=== PATIENT | male | born 1965 | race Caucasian/White ===

== ENCOUNTER → 2017-02-22 | Outpatient (CLI) | payer BC ==
--- NOTE | 2017-02-22 15:24 | RADRPT ---
PROCEDURE: US carotid arteries. CLINICAL INDICATION: Left retinal vein occlusion. TECHNIQUE: Multiple sonographic images of the carotid arteries and vertebral arteries were obtaine d utilizing tolentino scale, duplex, and color-flow imaging. The images were reviewed on a PACS workstati on. COMPARISON: No prior studies are available for comparison. FINDINGS: Evaluation of the right carotid bifurcation region reveals mild atherosclerotic disease. Evaluation of the left carotid bifurcation region reveals mild atherosclerotic disease. There is antegrade flow within the vertebral arteries bilaterally. RIGHT CAROTID MEASUREMENTS: Common Carotid [id number] (cm/sec) Internal Carotid Artery 91 (cm/sec) External Carotid Artery 93 (cm/sec) Vertebral Artery 35 (cm/sec) Internal Carotid/Common Carotid1.0 LEFT CAROTID MEASUREMENTS: Common Carotid [id number] (cm/sec) Internal Carotid Artery 69 (cm/sec) External Carotid Artery 76 (cm/sec) Vertebral Artery 36 (cm/sec) Internal Carotid/Common Carotid0.8 Validated velocity measurements with angiographic measurements. Velocity criteria are extrapolated f rom diameter data as defined by the Society of Radiologists in Ultrasound Consensus Conference. Radi ology 2003; 229;340-346. This study does indirectly reference the measurement of the distal ICA alison meter as the denominator for stenosis measurement. IMPRESSION: 1. Less than 50% stenosis bilaterally in the internal carotid arteries. 2. Normal antegrade flow in the vertebral arteries bilaterally. RPTAT: QQ SRU Consensus Conference Criteria for the Diagnosis of Carotid Artery Stenosis* Degree of Stenosis, % ICA PSV, cm/sec Plaque Estimate, % ICA/CCA PSV Ratio Normal <125 None <2.0 <50 <125 <50 <2.0 50 69 125-230 >50 2.0-4.0 >70 but less than near occlusion >230 >50 <4.0 Near occlusion High, low, or undetectable Visible Variable Total occlusion Undetectable Visible, no detectable lumen Not applicable *Cartoid artery stenosis: tolentino-scale and Doppler US diagnosis. Society of Radiologists in Ultrasound Consensus Conference. Radiology 2003; 229: 340-346 .Rubin Strickland MD, Date Time Electronically viewed and signed by .Rubin Strickland MD, on 02/22/2017 15:24 .R/
== END | disposition home or self-care (01) ==
LOC: VAS 14:13
PROVIDERS: ATTEND Ophthalmology
DX: H34.8122 Central retinal vein occlusion, left eye, stable (principal)
CPT/HCPCS: 93880